=== PATIENT | female | born 1970 | race Two or more races ===

== ENCOUNTER → 2019-07-14 | Outpatient (CLI) | payer OTHER ==
[2019-07-14 09:31] LABS: Urine Bacteria NONE SEEN /hpf (None Seen); Urine Blood Negative /uL (Negative); Urine WBC 1 /hpf (0 - 5)
[2019-07-14 10:21] LABS: Leuteinizing Hormone 42.1 IU/L
[2019-07-14 10:22] LABS: Follicle Stimulating Hormone 103.7 IU/L (SEE BELOW)
== END | disposition home or self-care (01) ==
LOC: LAB 09:07 → EDBD 09:07
PROVIDERS: ATTEND Obstetrics & Gynecology
DX: N91.2 Amenorrhea, unspecified (principal)
CPT/HCPCS: 36415; 81001; 82670; 83001; 83002; 84403; 84443; 87086

== ENCOUNTER → 2020-12-05 | Outpatient (CLI) | payer OTHER ==
[2020-12-05 11:51] LABS: Follicle Stimulating Hormone 103.33 IU/L (SEE BELOW); Leuteinizing Hormone 44.2 IU/L
== END | disposition home or self-care (01) ==
LOC: LAB 08:39
PROVIDERS: ATTEND Obstetrics & Gynecology
DX: N95.1 Menopausal and female climacteric states (principal)
CPT/HCPCS: 36415; 82670; 83001; 83002; 84403; 84443

== ENCOUNTER → 2022-06-25 | Outpatient (CLI) | payer OTHER | END | disposition home or self-care (01) | LOC: LAB 09:44 | PROVIDERS: ATTEND Obstetrics & Gynecology | DX: N83.9 Noninflammatory disorder of ovary, fallopian tube and broad ligament, unspecified (principal) | CPT/HCPCS: 86304 ==